=== PATIENT | female | born 1940 | race Caucasian/White ===

== ENCOUNTER → 2020-01-27 12:58 | Outpatient (CLI) | payer MEDICARE, OTHER, SELFPAY | PROVIDERS: PCP Family Medicine; Referring Provider Family Medicine; Visit Provider Family Medicine | DX: M81.0 Age-related osteoporosis without current pathological fracture (principal) | CPT/HCPCS: 77080 ==

== ENCOUNTER → 2020-11-16 11:57 | Outpatient (CLI) | payer MEDICARE, OTHER, SELFPAY ==
[2020-11-16 12:30] LABS: Add Manual Diff / Slide Review NO; Basophils Absolute Auto 0 /uL (0-100); Basophils Percent Auto 0.9 % (0-2); Eosinophils Absolute Auto 200 /uL (0-450); Eosinophils Percent Auto 3.4 % (2-4); Hematocrit 37.9 % (36-46); Hemoglobin 12.4 g/dL (12.0-16.0); Lymphocytes Absolute Auto 1500 /uL (1100-4500); Lymphocytes Percent Auto 30.2 % (25-40); Mean Corpuscular HGB Conc 32.6 % (30-36); Mean Corpuscular Hemoglobin 29.4 PG (26-34); Mean Corpuscular Volume 90.2 fL (80-100); Monocytes Absolute Auto 400 /uL (0-900); Neutrophils Absolute Auto 2900 /uL (1500-7000); Neutrophils Percent Auto 57.5 % (50-75); Platelet Count 326 X10^3/uL (150-400); Red Cell Distribution Width 13.4 % (11.6-14.8)
[2020-11-16 12:40] LABS: Alanine Aminotransferase 14 IU/L (<35); Albumin 4.4 g/dL (3.5-5.0); Albumin Globulin Ratio 1.5 (1.0-2.8); Alkaline Phosphatase 71 U/L (38-126); Aspartate Aminotransferase 22 IU/L (14-36); BUN Creatinine Ratio 11.1 (6-22); Bilirubin Total 1.2 mg/dL (0.2-1.3); Blood Urea Nitrogen 8 mg/dL (7-17); Calcium 9.2 mg/dL (8.4-10.2); Carbon Dioxide 25 mmol/L (22-32); Chloride 107 mmol/L (98-107); Estimated Glomerular Filt Rate > 60.0 mL/min (>60); Globulin 2.9 g/dL (1.7-4.1); Glucose 104 mg/dL (80-110); HEMOLYSIS < 15 (0-50); Potassium 3.9 mmol/L (3.4-5.1); Sodium 139 mmol/L (137-145); Total Protein 7.3 g/dL (6.3-8.2)
[2020-11-16 13:40] LABS: Thyroid Stimulating Hormone 1.21 uIU/mL (0.47-4.68)
== END ==
PROVIDERS: PCP Family Medicine; Referring Provider Family Medicine; Visit Provider Family Medicine
DX: I48.91 Unspecified atrial fibrillation (principal); I10 Essential (primary) hypertension; Z00.00 Encounter for general adult medical examination without abnormal findings; R53.83 Other fatigue; Z12.31 Encounter for screening mammogram for malignant neoplasm of breast
CPT/HCPCS: 36415; 80053; 84443; 85025

== ENCOUNTER → 2021-11-18 17:04 | Outpatient (CLI) | payer MEDICARE, OTHER, SELFPAY ==
[2021-11-18 17:41] LABS: Add Manual Diff / Slide Review NO; Basophils Absolute Auto 0 /uL (0-100); Basophils Percent Auto 0.7 % (0-2); Eosinophils Absolute Auto 200 /uL (0-450); Eosinophils Percent Auto 4.2 % (2-4); Hematocrit 34.2 % (36-46); Hemoglobin 11.9 g/dL (12.0-16.0); Lymphocytes Absolute Auto 1800 /uL (1100-4500); Lymphocytes Percent Auto 30.7 % (25-40); Mean Corpuscular HGB Conc 34.9 % (30-36); Mean Corpuscular Volume 88.9 fL (80-100); Monocytes Absolute Auto 400 /uL (0-900); Monocytes Percent Auto 7.1 % (3-14); Neutrophils Absolute Auto 3300 /uL (1500-7000); Neutrophils Percent Auto 57.3 % (50-75); Platelet Count 298 X10^3/uL (150-400); Red Blood Cell Count 3.84 X10^6/uL (4.0-5.2); Red Cell Distribution Width 13.3 % (11.6-14.8); White Blood Cell Count 5.7 X10^3/uL (4.5-11.0)
[2021-11-18 18:05] LABS: Alanine Aminotransferase 15 IU/L (<35); Albumin 4.3 g/dL (3.5-5.0); Albumin Globulin Ratio 1.3 (1.0-2.8); Alkaline Phosphatase 73 U/L (38-126); Aspartate Aminotransferase 22 IU/L (14-36); BUN Creatinine Ratio 14.3 (6-22); Bilirubin Total 0.8 mg/dL (0.2-1.3); Blood Urea Nitrogen 14 mg/dL (7-17); Carbon Dioxide 26 mmol/L (22-32); Chloride 104 mmol/L (98-107); Estimated Glomerular Filt Rate 57 mL/min (>60); Globulin 3.2 g/dL (1.7-4.1); Glucose 103 mg/dL (80-110); HEMOLYSIS < 15 (0-50); Potassium 4.5 mmol/L (3.4-5.1); Sodium 138 mmol/L (137-145); Total Protein 7.5 g/dL (6.3-8.2)
[2021-11-18 18:35] LABS: TSH w/ Reflex to FT4 1.22 uIU/mL (0.47-4.68)
== END ==
PROVIDERS: PCP Family Medicine; Referring Provider Family Medicine; Visit Provider Family Medicine
DX: C44.91 Basal cell carcinoma of skin, unspecified (principal); I48.91 Unspecified atrial fibrillation; Z00.00 Encounter for general adult medical examination without abnormal findings
CPT/HCPCS: 36415; 80053; 84443; 85025

== ENCOUNTER → 2022-03-17 11:06 | Outpatient (CLI) | payer MEDICARE, OTHER, SELFPAY ==
[2022-03-17 12:48] LABS: COVID19 -Nasal RAPID Negative (Negative)
== END ==
PROVIDERS: PCP Family Medicine; Visit Provider Surgery
DX: Z20.822 Contact with and (suspected) exposure to COVID-19 (principal); Z01.812 Encounter for preprocedural laboratory examination
CPT/HCPCS: 87635; C9803

== ENCOUNTER 2022-03-20 08:28 | Day surgery (SDC) | payer MEDICARE, OTHER, SELFPAY ==
--- NOTE | 2022-03-20 | PATH_ITS ---
[facility] Accession Number: [id number] . 01 Material submitted: . PART A: colon - RIGHT COLON PART B: colon - LEFT COLON PART C: rectum - RECTUM . 01 Diagnosis: A-C. Right Colon, Left Colon, Rectum, Biopsy: Colonic mucosa with a patchy abnormal subepithelial collagen layer, most consistent with collagenous colitis. Negative for granulomas, dysplasia, or malignancy. [facility] 03/22/2022 1006 Local . 01 Comment: The provided clinical history of ulcerative colitis is noted. Microscopic colitis has been described in the setting of idiopathic inflammatory bowel disease. . 01 Electronically signed: . Ruth Rodriguez MD, Pathologist NPI- [id number] . 01 Gross description: . Part A: RIGHT COLON: Received in formalin are 4 fragment(s) of cabezas, soft tissue measuring 0.3 x 0.1 x 0.1 cm to 0.1 x 0.1 x 0.1 cm submitted entirely in 1 cassette(s) Part B: LEFT COLON: Received in formalin are 4 fragment(s) of cabezas, soft tissue measuring 0.2 x 0.1 x 0.1 cm to 0.1 x 0.1 x 0.1 cm submitted entirely in 1 cassette(s) Part C: RECTUM: Received in formalin is 1 fragment(s) of cabezas, soft tissue measuring 0.3 x 0.2 x 0.1 cm submitted entirely in 1 cassette(s) /CPE 03/21/2022 1003 Local . 01 Pathologist provided ICD-10: K51.90, K52.89 . 01 CPT . 617284, 226906, 187364 Specimen Comment: A courtesy copy of this report has been sent to [phone], [phone] Specimen Comment: [id number] Performed at: 01 [facility] [address] [address] [facility] [place], [place], [place] [id number] MD Ankit Bertrand MD Phone: [phone]
[2022-03-20 08:50] VITALS: BMI 24.1
[2022-03-20 08:55] VITALS: BP 164/77; PULSE 78; RESP 16; TEMP 36.9; O2SAT 97
--- NOTE | 2022-03-20 09:03 | PM.HP.1 ---
History of Present Illness History of Present Illness Date Patient Seen: 03/20/22 Time Patient Seen: 09:04 Chief complaint: Colonoscopy Narrative: I reviewed my recent office note. She has improved since restarting the mesalamine. Patient History Medical History Anemia Basal cell carcinoma Diarrhea Hypertension Osteoporosis Well adult exam Surgical History History of hysterectomy Family & Social History Social History: household members significant other Tobacco & Substance use: Smoking Status Former smoker alcohol intake current alcohol intake frequency a few times a month Substance Use Type does not use Meds Home Medications and Allergies Home Medications Medication Instructions Recorded Confirmed Type apixaban 5 mg tablet (Eliquis) 5 mg PO BID 11/28/19 03/20/22 History diltiazem HCl 180 mg capsule,24 180 mg PO DAILY 11/28/19 03/20/22 History hr,extended release losartan 50 mg tablet 50 mg PO DAILY 11/28/19 03/20/22 History diclofenac sodium 3 % topical gel 1 applic topical BID #100 grams 11/16/20 03/20/22 Rx mesalamine 1.2 gram tablet,delayed 2.4 g PO DAILY 11/18/21 03/20/22 History release alendronate 70 mg tablet See Rx Instructions .Route 11/28/21 03/20/22 Rx .COMPLEX #12 tabs Allergies Allergy/AdvReac Type Severity Reaction Status Date / Time No Known Drug Allergies Allergy Verified 03/20/22 08:46 Review of Systems Review of Systems ROS: Yes All systems reviewed with the patient and are negative except as otherwise documented Exam Const General: cooperative HENMT Head: normal to inspection Eyes General: appearance normal, both eyes and all related structures Neck Neck: normal visual inspection Chest Chest: normal inspection of the chest Resp Effort & Inspection: normal respiratory effort Cardio Rate: regular rate GI Inspection: normal to inspection Skin General: no rashes or lesions noted Neuro General: patient alert and patient awake Extrem General: normal to inspection and no pedal edema Psych Appearance: grossly normal Assessment & Plan Assessment & Plan narrative: 82-year-old female with a history of ulcerative colitis, family history of colon cancer, personal history of colon polyps. Colonoscopy is pursued today. She is off her Eliquis x2 days. Time Spent With Patient Critical Care time: I spent a total of [] minutes of critical care time on this patient's care today; this time is exclusive of procedural time.
--- NOTE | 2022-03-20 09:06 | PM.PREOP ---
Pre-operative Note COVID-19 COVID-19 status: Negative Result date/Date tested (Pos, Neg/Pending): 03/17/22 Criteria for continued procedure: Possibility delay results in more complex future surgery or treatment Interval Note History & Physical reviewed/Exam performed by Physician: Yes Changes to H&P: Yes ASA Class (for procedural sedation): II
[2022-03-20] MEDS: LACTATED RINGERS 1,000 ML 42 ML IV (09:07)
--- NOTE | 2022-03-20 09:44 | SUR.OPER ---
GLASSES IN LABELED CASE TO PACU WITH PATIENT
--- NOTE | 2022-03-20 10:05 | PM.OP.COLON ---
Operative Date/Time/Diagnoses Date of procedure: 03/20/22 Time of procedure: 10:05 Pre-op diagnosis: History of ulcerative colitis, personal history of colon polyps, family history of colon cancer. Post-op diagnosis: same Procedure & Clinicians Study performed: Colonoscopy with biopsies Same procedure as scheduled: Yes Indications: History of ulcerative colitis, personal history of colon polyps, family history of colon cancer. Surgeon: Ahmet Tanner Procedure Notes SCOAP/Timeout: Done Procedure in detail: After the risks and benefits were explained, written and verbal informed consent was obtained. The patient was brought into the procedure room and placed into the left lateral decubitus position. Please see anesthesia note for sedation details. Digital rectal examination was accomplished. The scope was introduced into the patient and advanced under direct visualization to the cecum as identified by the appendiceal orifice and ileocecal valve. The scope was slowly withdrawn to carefully examine the mucosa for any defects or lesions. Comprehensive imaging was accomplished throughout the rectum including the dentate line. The colon was decompressed, the scope was then removed from the patient who tolerated the procedure well. Bowel prep adequate Pediatric colonoscope Scope withdrawal time: 10 minutes Sedation minutes: 23 Complications: none Impression: The patient had a slightly tortuous colon. Navigation was somewhat challenging requiring supine position, pressure, and the stiffening vipul. No significant polyps mass lesions or inflammatory features identified throughout. I did not appreciate any evidence of macroscopic proctitis. There was some scarring from what appeared to be a prior polypectomy in the rectum. I took right colon biopsies, left colon biopsies, and finally rectal biopsies and submitted these in 3 separate specimen containers. In the context of ongoing anticoagulation needs, I tried to minimize biopsies today. Endoscopic diagnosis Visually normal colonoscopy Post-procedure Plan for aftercare: 1. Await histopathology. 2. Continue Lialda. 3. Okay to restart Eliediis tomorrow. Disposition: PACU
[2022-03-20 10:09] VITALS: BP 108/63; PULSE 68; RESP 20; TEMP 36.6; O2SAT 96
[2022-03-20 10:14] VITALS: BP 114/65; PULSE 67; RESP 14; O2SAT 96
[2022-03-20 10:20] VITALS: BP 121/58; PULSE 66; RESP 15; TEMP 36.4; O2SAT 97
[2022-03-20 10:25] VITALS: BP 129/70; PULSE 63; RESP 15; TEMP 36.5; O2SAT 98
== END 2022-03-20 10:40 | disposition home or self-care (01) ==
PROVIDERS: PCP Family Medicine; Referring Provider Internal Medicine Gastroenterology; Visit Provider Internal Medicine Gastroenterology
PROC: 0DJD8ZZ Inspection of Lower Intestinal Tract, Via Natural or Artificial Opening Endoscopic (ICD-10-PCS; CPT 45378; principal; 2022-03-20 09:30)
DX: Z12.11 Encounter for screening for malignant neoplasm of colon (principal); Z86.010 Personal history of colon polyps; Z80.0 Family history of malignant neoplasm of digestive organs; Z87.19 Personal history of other diseases of the digestive system; K63.89 Other specified diseases of intestine
CPT/HCPCS: 45380; J2704; J3010

== ENCOUNTER → 2022-10-02 10:59 | Outpatient (CLI) | payer MEDICARE, OTHER, SELFPAY ==
--- NOTE | 2022-10-02 11:02 | DI.RAD.S_ITS ---
PROCEDURE: XR LUMBAR SPINE MIN 4V INDICATIONS: Lower back pain TECHNIQUE: 5 views of the lumbar spine were acquired, including bilateral oblique views. COMPARISON: None. FINDINGS: Bones: 5 nonrib-bearing vertebrae are present. A grade 1 anterolisthesis of L4 on L5 and L5 on S1. Disc height loss, severe at L2-L3 and L5-S1 with endplate sclerosis, worse at L2-L3. Facet arthropathy, worse at L5-S1. No vertebral body compression fractures. No suspicious bony lesions. Decreased osseous mineralization. Soft tissues: Overlying bowel gas pattern is normal. No suspicious soft tissue calcifications. Atherosclerotic vascular calcifications. Surgical clips project over the right pelvis. Oblique images: Evaluation for pars defects is limited secondary to superimposed degenerative changes and decreased osseous mineralization. IMPRESSION: Multilevel degenerative changes of the lumbar spine with grade 1 anterolisthesis of L4 on L5 and L5 on S1. Dictated by: Simone Blanco M.D. on 10/02/2022 at 12:25 Approved by: Simone Blanco M.D. on 10/02/2022 at 12:29
== END ==
PROVIDERS: PCP Family Medicine; Referring Provider Family Medicine; Visit Provider Family Medicine
DX: M47.816 Spondylosis without myelopathy or radiculopathy, lumbar region (principal); M47.817 Spondylosis without myelopathy or radiculopathy, lumbosacral region; M43.16 Spondylolisthesis, lumbar region; M43.17 Spondylolisthesis, lumbosacral region; M54.50 Low back pain, unspecified
CPT/HCPCS: 72110

== ENCOUNTER → 2022-12-19 14:38 | Outpatient (CLI) | payer MEDICARE, OTHER, SELFPAY ==
--- NOTE | 2022-12-19 | DI.RAD.S_ITS ---
PROCEDURE: XR HAND RT MIN 3V INDICATIONS: Arthropathy, unspecified TECHNIQUE: 3 views of the hand(s) acquired. COMPARISON: None. FINDINGS: Bones: Interphalangeal joint space narrowing with osteophytosis and bony deformity. Some degree of subluxation is present. First CMC osteoarthritis. Soft tissues: No suspicious soft tissue calcifications. 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 Dictated by: Jose Carlos Montoya M.D. on 12/19/2022 at 16:46 Approved by: Jose Carlos Montoya M.D. on 12/19/2022 at 16:47
--- NOTE | 2022-12-19 | DI.RAD.S_ITS ---
PROCEDURE: XR KNEE RT 3V INDICATIONS: Arthropathy, unspecified TECHNIQUE: 3 views of the knee were acquired. COMPARISON: None. FINDINGS: Bones: No fractures or dislocations. No suspicious bony lesions. Tricompartmental osteophytosis. Soft tissues: No joint effusion. No suspicious soft tissue calcifications. IMPRESSION: [id number] tricompartmental osteoarthritis. Dictated by: Jose Carlos Montoya M.D. on 12/19/2022 at 16:47 Approved by: Jose Carlos Montoya M.D. on 12/19/2022 at 16:47
--- NOTE | 2022-12-19 | DI.RAD.S_ITS ---
PROCEDURE: XR HAND LT MIN 3V INDICATIONS: Arthropathy, unspecified TECHNIQUE: 3 views of the hand(s) acquired. COMPARISON: None. FINDINGS: Bones: Severe interphalangeal joint space narrowing with osteophytosis and some degree of subluxation. Soft tissues: No suspicious soft tissue calcifications. IMPRESSION: Severe interphalangeal osteoarthritis. Dictated by: Jose Carlos Montoya M.D. on 12/19/2022 at 16:45 Approved by: Jose Carlos Montoya M.D. on 12/19/2022 at 16:46
--- NOTE | 2022-12-19 | DI.RAD.S_ITS ---
PROCEDURE: XR SACROILIAC JOINT MIN 3V INDICATIONS: Arthropathy, unspecified TECHNIQUE: 3 views of the sacroiliac joints were acquired. COMPARISON: None. FINDINGS: Bones: Mild degenerative changes at the sacroiliac joints. No bony erosions or ankylosis. No suspicious bony lesions. No acute fractures. Generalized osteopenia. Degenerative changes are seen in the included lumbar spine and at the pubic symphysis. Soft tissues: Overlying bowel gas pattern is normal. No suspicious soft tissue densities. Surgical clips are seen projecting over the right pelvis. IMPRESSION: Mild sacroiliac joint osteoarthrosis bilaterally. No signs of sacroiliitis. Approved by: Trenton yMers M.D. on 12/19/2022 at 17:13
--- NOTE | 2022-12-19 | DI.RAD.S_ITS ---
PROCEDURE: XR KNEE LT 3V INDICATIONS: Arthropathy, unspecified TECHNIQUE: Three views of the knee were acquired. COMPARISON: None. FINDINGS: Bones: No acute fractures or dislocations. No suspicious bony lesions. Severe joint space narrowing is seen at the patellofemoral compartment medially with subchondral sclerosis. Mild degenerative changes are seen in the medial and lateral femorotibial compartments. Soft tissues: No joint effusion. Chondrocalcinosis. IMPRESSION: 1. 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 2. Chondrocalcinosis. Differential diagnosis includes but is not limited to CPPD, hyperparathyroidism, and hemochromatosis. Approved by: Trenton Myers M.D. on 12/19/2022 at 17:12
== END ==
PROVIDERS: PCP Family Medicine; Referring Provider Internal Medicine Rheumatology; Visit Provider Internal Medicine Rheumatology
DX: M47.898 Other spondylosis, sacral and sacrococcygeal region (principal); M17.0 Bilateral primary osteoarthritis of knee; M11.262 Other chondrocalcinosis, left knee; M19.042 Primary osteoarthritis, left hand; M19.041 Primary osteoarthritis, right hand
CPT/HCPCS: 72202; 73130; 73562

== ENCOUNTER → 2023-02-05 12:04 | Outpatient (CLI) | payer MEDICARE, OTHER, SELFPAY ==
--- NOTE | 2023-02-05 12:05 | DI.RAD.S_ITS ---
Bone Density Report Name: JASON ALFARO Age: 83 Sex: Female Ethnicity: White Date of : 1940 Indication: osteopenia; monitoring treatment; Referring Provider: EDILBERTO ROSARIO Study: Bone densitometry was performed. Exam Date: February 05, 2023 Accession number: [id number] Bone Density: Region BMD T-score Z-score Classification AP Spine(L1, L3, L4) 1.015 -0.3 2.5 Normal Femoral Neck (Left) 0.558 -2.6 -0.1 Osteoporosis Total Hip (Left) 0.710 -1.9 0.4 Osteopenia Femoral Neck (Right) 0.515 -3.0 -0.5 Osteoporosis Total Hip (Right) 0.663 -2.3 0.0 Osteopenia Total Hip Mean 0.686 -2.1 0.2 Osteopenia World Health Organization criteria for BMD impression classify patients as: Normal (T-score at or above -1.0), Osteopenia (T-score between -1.0 and -2.5), or Osteoporosis (T-score at or below -2.5). 10-year Fracture Risk: FRAX not reported because: Some T-score for Spine Total or Hip Total or Femoral Neck at or below -2.5 Treated for osteoporosis Previous Exams: -- Region Exam Age BMD T-score BMD Change BMD Change Date g/cm2 vs Baseline vs Previous -- AP Spine (L1,L3-L4) 02/05/2023 83 1.015 -0.3 -0.001 (-0.1%)# -0.001 (-0.1%)# 01/27/2020 80 1.016 -0.3 Total Hip(Left) 02/05/2023 83 0.710 -1.9 -0.003 (-0.4%)# -0.003 (-0.4%)# 01/27/2020 80 0.713 -1.9 Total Hip(Right) 02/05/2023 83 0.663 -2.3 0.017 (2.6%)# 0.017 (2.6%)# 01/27/2020 80 0.646 -2.4 -- *Denotes significance at 95% confidence level, LSC for AP Spine = 0.022 g/cm2, LSC for Total Hip = 0.027 g/cm2 # Denotes dissimilar scan types or analysis methods Impression: The patient has osteoporosis, based on the Right Femoral Neck T-score. No significant bone loss was observed. Discussion: PATIENT UNDER TREATMENT WITH NO SIGNIFICANT BMD LOSS SINCE LAST EXAM. In an untreated patient, BMD typically declines with age. A lack of decline or gain is usually a sign that treatment is efficacious and fracture risk is reduced. It is important to ask patients whether they are taking their medications and to encourage continued and appropriate compliance with their osteoporosis therapies to reduce fracture risk. It is also important to review their risk factors and encourage appropriate calcium and vitamin D intakes, exercise, fall prevention and other lifestyle measures. Follow-Up: Consider a repeat BMD and Vertebral Fracture Assessment (VFA) exam in 2 years or sooner if medically necessary, to reassess this patient's status. Reported by: QAMAR THOMSON MD on 02/05/2023 12:26:00 PM.
== END ==
PROVIDERS: PCP Family Medicine; Referring Provider Internal Medicine Rheumatology; Visit Provider Internal Medicine Rheumatology
DX: M81.8 Other osteoporosis without current pathological fracture (principal); M54.50 Low back pain, unspecified; M85.88 Other specified disorders of bone density and structure, other site
CPT/HCPCS: 77080

== ENCOUNTER → 2024-01-24 13:39 | Outpatient (CLI) | payer MEDICARE, OTHER, SELFPAY ==
--- NOTE | 2024-01-24 13:40 | DI.ECHO.S_ITS ---
[facility] : : [address] : : [place] : : [id number] : : Phone: [phone] Echocardiogram Report + + :Name: JASON ALFARO Study Date: 01/24/2024 Height: 64 in : :[facility] ReadingLocation: Weight: 135 lb : : Gender: Female BSA: 1.7 m2 : :: 1940 Age: 84 yrs BP: 115/74 mmHg: :Reason For Study: MITRAL VALVE INSUFFICIENCY : :Ordering Physician: MIRYAM, : :TAE Performed By: Nathan Sánchez : :Referring: TAE ALTMAN : + + Interpretation Summary 1) Mildly increased left ventricular thickness (concentric) with normal size and normal systolic function (EF 55-60%). 2) Mild to moderately enlarged right ventricle with mildly reduced function. 3) The left atrium is severely dilated. The right atrium is moderately dilated. 4) There is moderate aortic regurgitation. 5) There is moderate mitral regurgitation. 6) There is mild to moderate tricuspid regurgitation. 7) The right ventricular systolic pressure is estimated to be at least 46 mmHg based on an estimated right atrial pressure of 3 mm Hg. 8) No prior Echo available for comparison. Procedure: A two-dimensional transthoracic echocardiogram with color flow and Doppler was performed. The study quality was technically good. There is no prior echocardiogram noted for this patient. The patient was in normal sinus rhythm during the exam. Left Ventricle: The left ventricle is normal in size. Left ventricular wall thickness is mildly increased. There is no ventricular septal defect visualized. The ejection fraction is estimated to be 55-60%. There are no focal wall motion abnormalities. Right Ventricle: The right ventricle is mild to moderately dilated. Right ventricular systolic function is mildly reduced. Atria: The left atrium is severely dilated. The right atrium is moderately dilated. There is no Doppler evidence for an interatrial shunt. Mitral Valve: The mitral valve leaflets appear mildly thickened, but open well. There is mild mitral annular calcification. There is moderate mitral regurgitation. The mitral regurgitant jet is eccentrically directed. E = 1m/s. Aortic Valve: The aortic valve is trileaflet. The aortic valve opens well. The aortic valve is mildly calcified. There is no aortic valve stenosis. There is moderate aortic regurgitation. Tricuspid Valve: The tricuspid valve is normal in structure and function. There is mild to moderate tricuspid regurgitation. The right ventricular systolic pressure is estimated to be at least 46 mmHg based on an estimated right atrial pressure of 3 mm Hg. Pulmonic Valve: The pulmonic valve is normal in structure and function. There is mild to moderate pulmonic regurgitation. Great Vessels: The aortic root is normal size. The ascending aorta is mildly enlarged. The pulmonary artery is normal size. The IVC is of normal diameter and collapses greater than 50% with a sniff. This suggests a low right atrial pressure of 3 mm Hg. Pericardium/ Pleura There is no pericardial effusion. There is no pleural effusion. MMode/2D Measurements & Calculations LVIDd: 4.9 cm LVOT diam: 2.3 cm LVIDs: 3.1 cm Ao root diam: 3.3 cm FS: 35.9 % asc Aorta Diam: 4.0 cm EPSS: 0.67 cm Ao Arch Diam (Prox Trans): 2.4 cm IVSd: 1.1 cm LVPWd: 1.1 cm LV galo. diameter/BSA (cm/m^2): 2.9 LV sys. diameter/BSA (cm/m^2): 1.9 LA A2 area: 29.0 cm2 RA long axis: 5.4 cm LA A4 area: 35.1 cm2 RA area: 21.8 cm2 LA length (vol): 6.7 cm RA vol: 74.2 ml LA vol: 129.3 ml RA : 44.8 ml/m2 LA vol index: 78.1 ml/m2 IVC diam: 1.8 cm RVD1 (basal): 4.8 cm RVD2 (mid): 3.8 cm TAPSE: 1.8 cm Doppler Measurements & Calculations Ao V2 max: 143.3 cm/sec LVOT Max Lamine: 90.9 cm/sec Ao V2 mean: 107.5 cm/sec LV V1 max P.3 mmHg Ao max P.2 mmHg LV V1 VTI: 21.2 cm Ao mean P.0 mmHg LISA(I,D): 3.3 cm2 Ao V2 VTI: 27.0 cm LISA(V,D): 2.7 cm2 sev ratio: 0.79 LISA indexed to BSA (cm^2/m^2): 2.0 AI P1/2t: 525.3 msec AI dec slope: 252.5 cm/sec2 MV E max lamine: 97.6 cm/sec TR max lamine: 328.2 cm/sec MV A max lamine: 21.5 cm/sec TR max P.1 mmHg MV E/A: 4.5 PA V2 max: 63.6 cm/sec MV dec time: 0.22 sec PA V2 mean: 45.9 cm/sec PA mean P.93 mmHg PA pr(Accel): 43.0 mmHg SV(LVOT): 89.8 ml Reading Physician:04:12 PM
== END ==
PROVIDERS: PCP Family Medicine; Referring Provider Internal Medicine Cardiovascular Disease; Visit Provider Internal Medicine Cardiovascular Disease
DX: I08.3 Combined rheumatic disorders of mitral, aortic and tricuspid valves (principal); I77.810 Thoracic aortic ectasia; I44.7 Left bundle-branch block, unspecified
CPT/HCPCS: 93306